=== PATIENT | female | born 1960 | race Caucasian/White ===

== ENCOUNTER 2021-02-07 18:47 | Emergency (ER) | payer OTHER ==
[~2021-02-07] VITALS: Ht 167.6 cm; Wt 81.8 kg
[~2021-02-07 18:47] MED LIST: IBUP-1986 PO
[2021-02-07] MEDS ORDERED: normal saline 1000ML IV soln IVB ONE (19:00)
[2021-02-07] MEDS ORDERED: ondansetron/PF 4mg/2ml inj IV ONE (19:00)
[2021-02-07 19:40] LABS: BASOPHILS % (AUTO) 0.8 % (0-1); EOSINOPHILS % (AUTO) 0.4 % (0-6); HEMATOCRIT 40.4 % (35.0-45.0); LYMPHOCYTES # (AUTO) 0.7 X10'3 (1.1-4.8); LYMPHOCYTES % (AUTO) 24.8 % (21-51); MEAN CORPUSCULAR HEMOGLOBIN 30.4 PG (27.0-31.0); MEAN CORPUSCULAR HGB CONC 34.5 g/dL (33.0-36.5); MEAN PLATELET VOLUME 9.7 FL (7.4-10.4); MONOCYTES # (AUTO) 0.3 X10'3 (0-0.9); MONOCYTES % (AUTO) 9.4 % (2-12); NEUTROPHILS # (AUTO) 1.9 X10'3 (1.8-7.7); NEUTROPHILS % (AUTO) 64.6 % (42-75); PLATELET COUNT 134 X10'3 (140-440); RED CELL DISTRIBUTION WIDTH 13.4 % (11.5-14.5)
[2021-02-07 19:49] LABS: ALANINE AMINOTRANSFERASE 41 U/L (12-78); ALBUMIN 3.9 G/DL (3.4-5.0); ALKALINE PHOSPHATASE 45 IU/L (46-116); ANION GAP 12 (8-16); ASPARTATE AMINO TRANSFERASE 32 U/L (10-37); BILIRUBIN,TOTAL 0.6 MG/DL (0.1-1.0); BLOOD UREA NITROGEN 11 MG/DL (7-18); BUN/CREATININE RATIO 13.9 (6.6-38.0); CALCIUM 8.6 MG/DL (8.5-10.1); CHLORIDE 101 MMOL/L (99-107); CREATININE 0.79 MG/DL (0.40-0.90); GLUCOSE 125 MG/DL (70-104); POTASSIUM 4.1 MMOL/L (3.5-5.1); SODIUM 138 MMOL/L (135-145); TOTAL CARBON DIOXIDE 25.2 MMOL/L (24-32); eGFR 74 ML/MIN
[2021-02-07] MEDS ORDERED: ALBU6.7H9 INH (20:25)
[2021-02-07] MEDS ORDERED: ONDA4TAB6 PO (20:25)
[2021-02-07 20:35] LABS: TOTAL CELLS COUNTED 100
[2021-02-07 20:36] LABS: LARGE PLATELETS FEW; PLATELET ESTIMATE DECREASED
[2021-02-07 21:36] VITALS: BP 165/77
== END 2021-02-07 21:38 | disposition home or self-care (01) ==
LOC: ER 18:48
DX: U07.1 COVID-19 (principal); R11.2 Nausea with vomiting, unspecified; E86.0 Dehydration; R50.9 Fever, unspecified; R19.7 Diarrhea, unspecified; R43.8 Other disturbances of smell and taste; Z72.89 Other problems related to lifestyle; Z56.0 Unemployment, unspecified; Z88.0 Allergy status to penicillin; Z88.2 Allergy status to sulfonamides; Z88.1 Allergy status to other antibiotic agents; Z79.899 Other long term (current) drug therapy
CPT/HCPCS: 36415; 71045; 80053; 85007; 85025; 96361; 96374; 99284; J2405; J7030

== ENCOUNTER 2021-02-09 07:08 | Emergency (ER) | payer OTHER ==
[~2021-02-09] VITALS: Ht 167.6 cm; Wt 81.8 kg
[~2021-02-09 07:08] MED LIST changes: +ALBU6.7H9 INH; +ONDA4TAB6 PO
[2021-02-09 07:16] VITALS: BP 148/76
== END 2021-02-09 08:57 | disposition home or self-care (01) ==
LOC: ER 07:08
DX: U07.1 COVID-19 (principal); R05.9 Cough, unspecified; R11.2 Nausea with vomiting, unspecified; R53.1 Weakness; Z72.89 Other problems related to lifestyle; Z56.0 Unemployment, unspecified; Z88.0 Allergy status to penicillin; Z88.2 Allergy status to sulfonamides; Z88.1 Allergy status to other antibiotic agents; Z88.8 Allergy status to other drugs, medicaments and biological substances; Z79.899 Other long term (current) drug therapy
CPT/HCPCS: 99282

== ENCOUNTER 2021-09-29 12:05 | Emergency (ER) | payer BC, OTHER ==
[~2021-09-29] VITALS: Ht 167.6 cm; Wt 82.5 kg
[2021-09-29 12:17] VITALS: BP 189/86
[2021-09-29] MEDS ORDERED: AZIT250T81 PO (13:37)
== END 2021-09-29 14:44 | disposition home or self-care (01) ==
LOC: ER 12:06 → EEVIPCON 12:06 → ER 14:44
DX: H61.21 Impacted cerumen, right ear (principal); H66.91 Otitis media, unspecified, right ear; Z88.0 Allergy status to penicillin; Z88.2 Allergy status to sulfonamides; Z56.0 Unemployment, unspecified
CPT/HCPCS: 69209; 99283

== ENCOUNTER 2022-01-18 06:31 | Day surgery (SDC) | payer BC ==
[~2022-01-18] VITALS: Ht 167.6 cm; Wt 77.3 kg
[~2022-01-18 06:31] MED LIST changes: +ALBU6.7H14 INH; -ALBU6.7H9 INH
[2022-01-18 06:50] VITALS: BP 169/89
[2022-01-18] MEDS ORDERED: MIDAZolam 1 MG/ML 5ML VIAL ONE (06:50)
[2022-01-18] MEDS ORDERED: fentaNYL/PF 50MCG/1 ML 2ML syringe ONE (06:50)
[2022-01-18] MEDS ORDERED: NO HOME MEDS (06:53)
[2022-01-18 08:52] VITALS: BP 151/108
[2022-01-18 09:02] VITALS: BP 144/81
[2022-01-18 09:12] VITALS: BP 147/78
[2022-01-18 09:22] VITALS: BP 148/79
== END 2022-01-18 09:30 | disposition home or self-care (01) ==
LOC: GI LAB 06:31
PROVIDERS: ATTEND Specialist
DX: Z09 Encounter for follow-up examination after completed treatment for conditions other than malignant neoplasm (principal); D12.0 Benign neoplasm of cecum; D12.4 Benign neoplasm of descending colon; D12.5 Benign neoplasm of sigmoid colon; K57.30 Diverticulosis of large intestine without perforation or abscess without bleeding; K64.8 Other hemorrhoids; Z86.010 Personal history of colon polyps; Z79.899 Other long term (current) drug therapy; Z98.890 Other specified postprocedural states
CPT/HCPCS: 45385; J2250; J3010; J7030; Z7512; 45380; 99152; 99153; A4620; C1889

== ENCOUNTER 2022-04-21 06:58 | Emergency (ER) | payer BC ==
[~2022-04-21] VITALS: Ht 167.6 cm; Wt 77.0 kg
[~2022-04-21 06:58] MED LIST changes: -ALBU6.7H14 INH; -IBUP-1986 PO; +NO HOME MEDS; -ONDA4TAB6 PO
[2022-04-21 07:33] LABS: BASOPHILS % (AUTO) 0.4 % (0-1); EOSINOPHILS # (AUTO) 0.1 X10'3 (0-0.9); EOSINOPHILS % (AUTO) 2.3 % (0-6); LYMPHOCYTES # (AUTO) 2.1 X10'3 (1.1-4.8); LYMPHOCYTES % (AUTO) 33.9 % (21-51); MEAN CORPUSCULAR HEMOGLOBIN 29.8 PG (27.0-31.0); MEAN CORPUSCULAR HGB CONC 33.3 g/dL (33.0-36.5); MEAN CORPUSCULAR VOLUME 89.5 FL (78-98); MEAN PLATELET VOLUME 10.2 FL (7.4-10.4); MONOCYTES # (AUTO) 0.4 X10'3 (0-0.9); MONOCYTES % (AUTO) 5.9 % (2-12); NEUTROPHILS # (AUTO) 3.6 X10'3 (1.8-7.7); NEUTROPHILS % (AUTO) 57.5 % (42-75); PLATELET COUNT 166 X10'3 (140-440); RED BLOOD COUNT 4.69 X10'6 (4.20-5.60); RED CELL DISTRIBUTION WIDTH 13.6 % (11.5-14.5); WHITE BLOOD COUNT 6.3 X10'3 (4.5-11.0)
[2022-04-21 08:00] LABS: D-DIMER 0.53 MG/L FEU (0-0.50)
[2022-04-21 08:17] LABS: ALANINE AMINOTRANSFERASE 40 U/L (12-78); ALBUMIN 4.1 G/DL (3.4-5.0); ALBUMIN/GLOBULIN RATIO 1.2 (1.1-1.5); ALKALINE PHOSPHATASE 49 IU/L (46-116); ANION GAP 11 (8-16); ASPARTATE AMINO TRANSFERASE 25 U/L (10-37); BILIRUBIN,TOTAL 0.6 MG/DL (0.1-1.0); BLOOD UREA NITROGEN 13 MG/DL (7-18); BUN/CREATININE RATIO 16.3 (6.6-38.0); CALCIUM 9.3 MG/DL (8.5-10.1); CHLORIDE 106 MMOL/L (99-107); GLUCOSE 103 MG/DL (70-104); POTASSIUM 3.6 MMOL/L (3.5-5.1); SODIUM 141 MMOL/L (135-145); TOTAL CARBON DIOXIDE 24.2 MMOL/L (24-32); TOTAL PROTEIN 7.4 G/DL (6.4-8.2); eGFR 73 ML/MIN
--- NOTE | 2022-04-21 08:33 | NUR ---
Dr. Carmona at bedside.
[2022-04-21 08:34] VITALS: BP 154/77
== END 2022-04-21 08:51 | disposition home or self-care (01) ==
LOC: ER 06:58
DX: R07.89 Other chest pain (principal); Z88.0 Allergy status to penicillin; Z88.2 Allergy status to sulfonamides; Z56.0 Unemployment, unspecified
CPT/HCPCS: 36415; 71045; 80053; 83735; 83880; 84484; 85025; 85379; 93005; 99285